=== PATIENT | male | born 1995 | race Caucasian/White ===

== ENCOUNTER 2019-08-23 22:27 | Emergency (ER) | payer BC ==
[2019-08-23 22:36] VITALS: BP 138/90; PULSE 94
--- NOTE | 2019-08-23 23:05 | EDM.PDOCBH ---
ED HPI GENERAL MEDICAL PROBLEM - General Chief Complaint: Drug or Alcohol Abuse Stated Complaint: MEDICAL CHECK Time Seen by Provider: 08/23/19 23:04 - History of Present Illness INITIAL COMMENTS - FREE TEXT/NARRATIVE: 23-year-old male presents emergency room looking for help for his drug addiction. the patient was an inpatient for drug rehabilitation about 5 years ago. But 8 months ago he started using again mostly benzodiazepines Ambien and hydrocodone. This was all brought out the open recently in the patient wants help he believes inpatient help which is what helped him the last time will be needed. Patient started his addiction after becoming addicted to pain pills after wisdom tooth extraction. Patient denies any other medical problems other than a seizure disorder. He takes Keppra for this and is doing well. He is also treated for hypothyroidism - Related Data Allergies Allergy/AdvReac Type Severity Reaction Status Date / Time No Known Allergies Allergy Verified 08/23/19 22:36 Home Meds: Home Meds Levothyroxine [Synthroid] 100 mcg PO DAILY 06/26/19 [History] DULoxetine [Cymbalta] 60 mg PO DAILY 08/23/19 [History] levETIRAcetam [Keppra] 1,000 mg PO BID 08/23/19 [History] Past Medical History - Past Health History Medical/Surgical History: Denies Medical/Surgical History Genitourinary History: Reports: Other (See Below) Neurological History: Reports: Seizure Psychiatric History: Reports: Addiction, Anxiety, Depression Endocrine/Metabolic History: Reports: Hypothyroidism Social & Family History - Tobacco Use Smoking Status *Q: Never Smoker - Caffeine Use Caffeine Use: Reports: Coffee - Recreational Drug Use Recreational Drug Use: Yes Drug Use in Last 12 Months: Yes Recreational Drug Type: Reports: Benzodiazepines, Oxycodone, Vicodin, Other ( see below) Other Recreational Drug Type: ambien Recreational Drug Use Frequency: Daily Recreational Drug Last Use: 08/22/19 ED ROS GENERAL - Review of Systems Review Of Systems: See Below Constitutional: Reports: No Symptoms HEENT: Reports: No Symptoms Respiratory: Reports: No Symptoms Cardiovascular: Reports: No Symptoms Endocrine: Reports: No Symptoms GI/Abdominal: Reports: No Symptoms : Reports: No Symptoms Musculoskeletal: Reports: No Symptoms Skin: Reports: No Symptoms Neurological: Reports: No Symptoms Psychiatric: Denies: Confusion, Homicidal Ideation, Mood Lability, Suicidal Ideation Hematologic/Lymphatic: Denies: No Symptoms Immunologic: Denies: No Symptoms ED EXAM, BEHAVIORAL HEALTH - Physical Exam Exam: See Below Exam Limited By: No Limitations General Appearance: Alert, No Apparent Distress Eye Exam: Bilateral Eye: EOMI, Normal Inspection, PERRL Ears: Normal External Exam, Normal Canal, Hearing Grossly Normal, Normal TMs Nose: Normal Inspection, Normal Mucosa, No Blood Throat/Mouth: Normal Inspection, Normal Lips, Normal Teeth, Normal Gums, Normal Oropharynx, Normal Voice, No Airway Compromise Head: Atraumatic, Normocephalic Neck: Normal Inspection, Supple, Non-Tender, Full Range of Motion. No: Lymphadenopathy (L), Lymphadenopathy (R) Respiratory/Chest: No Respiratory Distress, Lungs Clear, Normal Breath Sounds Cardiovascular: Regular Rate, Rhythm, No Edema, No Murmur GI/Abdominal: Normal Bowel Sounds, Soft, Non-Tender Rectal (Males) Exam: No: Rectal Fissure Back Exam: Normal Inspection. No: CVA Tenderness (R) Extremities: Normal Inspection, Non-Tender, No Pedal Edema Neurological: Alert, Normal Cognition, Other (He is a little tearful at this time) Psychiatric: Alert, Normal Cognition, Tearful. No: Homicidal Thoughts, Suicidal Plan, Suicidal Thoughts Skin Exam: Warm, Dry, Intact EKG INTERPRETATION Rhythm: NSR [place]: Normal P-Wave: Present QRS: Normal ST-T: Normal QT: Normal Comparison: NA - No Prior EKG COURSE, BEHAVIORAL HEALTH COMP - Course Vital Signs: Last Vital Signs Temp 36.5 C 08/23/19 22:34 Pulse 94 08/23/19 22:34 Resp 16 08/23/19 22:34 BP 138/90 08/23/19 22:34 Pulse Ox 99 08/23/19 22:34 Orders, Labs, Meds: Active Orders 24 hr Category Date Time Status EKG Documentation Completion [RC] STAT Care 08/23/19 23:41 Active Laboratory Tests 08/23/19 08/23/19 08/23/19 Range/Units 23:15 23:55 23:55 WBC 9.48 H (4.23-9.07) K/mm3 RBC 5.06 (4.63-6.08) M/mm3 Hgb 14.7 (13.7-17.5) gm/dl Hct 41.9 (40.1-51.0) % MCV 82.8 (79.0-92.2) fl MCH 29.1 (25.7-32.2) pg MCHC 35.1 (32.2-35.5) g/dl RDW Std Deviation 37.9 (35.1-43.9) fL Plt Count 193 (163-337) K/mm3 MPV 11.3 (9.4-12.3) fl Neutrophils % (Manual) 73 H (40-60) % Band Neutrophils % 0 (0-10) % Lymphocytes % (Manual) 21 (20-40) % Atypical Lymphs % 0 % Monocytes % (Manual) 6 (2-10) % Eosinophils % (Manual) 0 L (0.8-7.0) % Basophils % (Manual) 0 L (0.2-1.2) Platelet Estimate Adequate Plt Morphology Comment Normal RBC Morph Comment Normal Sodium 142 (136-145) mEq/L Potassium 3.6 (3.5-5.1) mEq/L Chloride 104 (98-107) mEq/L Carbon Dioxide 27 (21-32) mEq/L Anion Gap 14.6 (5-15) BUN 11 (7-18) mg/dL Creatinine 1.0 (0.7-1.3) mg/dL Est Cr Clr Drug Dosing 136.14 mL/min Estimated GFR (MDRD) > 60 (>60) mL/min BUN/Creatinine Ratio 11.0 L (14-18) Glucose 115 H (74-106) mg/dL Calcium 9.2 (8.5-10.1) mg/dL Total Bilirubin 0.4 (0.2-1.0) mg/dL AST 12 L (15-37) U/L ALT 17 (16-63) U/L Alkaline Phosphatase 80 (46-116) U/L Total Protein 7.3 (6.4-8.2) g/dl Albumin 4.1 (3.4-5.0) g/dl Globulin 3.2 gm/dL Albumin/Globulin Ratio 1.3 (1-2) TSH 3rd Generation 2.827 (0.358-3.74) uIU/mL Urine Color (Yellow) Urine Appearance (Clear) Urine pH (5.0-8.0) Ur Specific [place] (1.005-1.030) Urine Protein (Negative) Urine Glucose (UA) (Negative) Urine Ketones (Negative) Urine Occult Blood (Negative) Urine Nitrite (Negative) Urine Bilirubin (Negative) Urine Urobilinogen (0.2-1.0) Ur Leukocyte Esterase (Negative) Urine RBC (0-5) /hpf Urine WBC (0-5) /hpf Ur Epithelial Cells (0-5) /hpf Urine Bacteria (FEW) /hpf Urine Mucus (FEW) /hpf Urine Opiates Screen Presumptive positive H (CWGGQK=445) Ur Buprenorphine Scrn Negative (CUTOFF=10) Ur Oxycodone Screen Negative (YAO8CG=571) Urine Methadone Screen Negative (YXE0HZ=302) Ur Propoxyphene Screen Negative (FXQVYZ=623) Ur Barbiturates Screen Negative (FWAEFF=404) Ur Tricyclics Screen Negative (HKTZEL=847) Ur Phencyclidine Scrn Negative (CUTOFF=25) Ur Amphetamine Screen Negative (XXVYZL=280) U Methamphetamines Scrn Negative (CKSKPR=841) U Benzodiazepines Scrn Negative (KJCWPX=277) U Cocaine Metab Screen Negative (UBDOSK=277) U Marijuana (THC) Screen Negative (CUTOFF=50) Ethyl Alcohol 0.00 (0.00) gm% 08/23/19 Range/Units 23:57 WBC (4.23-9.07) K/mm3 RBC (4.63-6.08) M/mm3 Hgb (13.7-17.5) gm/dl Hct (40.1-51.0) % MCV (79.0-92.2) fl MCH (25.7-32.2) pg MCHC (32.2-35.5) g/dl RDW Std Deviation (35.1-43.9) fL Plt Count (163-337) K/mm3 MPV (9.4-12.3) fl Neutrophils % (Manual) (40-60) % Band Neutrophils % (0-10) % Lymphocytes % (Manual) (20-40) % Atypical Lymphs % % Monocytes % (Manual) (2-10) % Eosinophils % (Manual) (0.8-7.0) % Basophils % (Manual) (0.2-1.2) Platelet Estimate Plt Morphology Comment RBC Morph Comment Sodium (136-145) mEq/L Potassium (3.5-5.1) mEq/L Chloride (98-107) mEq/L Carbon Dioxide (21-32) mEq/L Anion Gap (5-15) BUN (7-18) mg/dL Creatinine (0.7-1.3) mg/dL Est Cr Clr Drug Dosing mL/min Estimated GFR (MDRD) (>60) mL/min BUN/Creatinine Ratio (14-18) Glucose (74-106) mg/dL Calcium (8.5-10.1) mg/dL Total Bilirubin (0.2-1.0) mg/dL AST (15-37) U/L ALT (16-63) U/L Alkaline Phosphatase (46-116) U/L Total Protein (6.4-8.2) g/dl Albumin (3.4-5.0) g/dl Globulin gm/dL Albumin/Globulin Ratio (1-2) TSH 3rd Generation (0.358-3.74) uIU/mL Urine Color Yellow (Yellow) Urine Appearance Clear (Clear) Urine pH 6.0 (5.0-8.0) Ur Specific [place] 1.010 (1.005-1.030) Urine Protein Negative (Negative) Urine Glucose (UA) Negative (Negative) Urine Ketones Negative (Negative) Urine Occult Blood Negative (Negative) Urine Nitrite Negative (Negative) Urine Bilirubin Negative (Negative) Urine Urobilinogen 0.2 (0.2-1.0) Ur Leukocyte Esterase Negative (Negative) Urine RBC Not seen (0-5) /hpf Urine WBC Not seen (0-5) /hpf Ur Epithelial Cells Not seen (0-5) /hpf Urine Bacteria Rare (FEW) /hpf Urine Mucus Not seen (FEW) /hpf Urine Opiates Screen (RYDPME=526) Ur Buprenorphine Scrn (CUTOFF=10) Ur Oxycodone Screen (WGP5BI=884) Urine Methadone Screen (YPG2OT=574) Ur Propoxyphene Screen (SPMLTC=555) Ur Barbiturates Screen (AOTHWP=340) Ur Tricyclics Screen (ZFZDOV=792) Ur Phencyclidine Scrn (CUTOFF=25) Ur Amphetamine Screen (BYTWEM=403) U Methamphetamines Scrn (GNUTBB=721) U Benzodiazepines Scrn (URKPAB=590) U Cocaine Metab Screen (RETUXR=618) U Marijuana (THC) Screen (CUTOFF=50) Ethyl Alcohol (0.00) gm% Medical Clearance: 08/24/19 00:59 EKG laboratory findings are nondiagnostic drug screen positive only for opioids EKG normal. The patient is cleared to go to inpatient drug rehabilitation 08/24/19 01:03 The patient's [id number] is quite comfortable taking the patient home tonight and will keep an eye on him he is alert oriented his vital signs are stable and he is not overtly intoxicated at this point. Departure - Departure Time of Disposition: 01:00 Disposition: Home, Self-Care 01 Clinical Impression: Adult general medical exam - Discharge Information Referrals: Angie Conrad NP [Primary Care Provider] - Additional Instructions: Return to the emergency room with any questions problems worsening symptoms. Call [facility] in [place] early in the morning to arrange placement. If you have any difficulties with this call [facility] services. - My Orders Last 24 Hours: My Active Orders 08/23/19 23:41 EKG Documentation Completion [RC] STAT - Assessment/Plan Last 24 Hours: My Active Orders 08/23/19 23:41 EKG Documentation Completion [RC] STAT
== END 2019-08-24 01:10 | disposition home or self-care (01) ==
LOC: JD.ED 22:27
DX: Z00.00 Encounter for general adult medical examination without abnormal findings (principal); E03.9 Hypothyroidism, unspecified; G40.909 Epilepsy, unspecified, not intractable, without status epilepticus; F32.9 Major depressive disorder, single episode, unspecified; F41.9 Anxiety disorder, unspecified; Z79.890 Hormone replacement therapy; Z79.899 Other long term (current) drug therapy
CPT/HCPCS: 36415; 80053; 80306; 81001; 84443; 85007; 85027; 93005; 93010; 99283; 99283-25; G0480

== ENCOUNTER 2022-09-23 10:46 | Emergency (ER) | payer BC, OTHER ==
[2022-09-23 11:06] VITALS: BP 148/89; PULSE 86
[2022-09-23] MEDS ORDERED: Ketorolac 60 MG/2 ML SDV IM ONE (11:58)
[2022-09-23] MEDS ORDERED: traMADol 50 MG Tab PO ONE (12:46)
[2022-09-23] MEDS ORDERED: Acetaminophen/HYDROcodone 325-5 MG Tab PO ONE (15:07)
== END 2022-09-23 15:45 | disposition home or self-care (01) ==
LOC: JD.ED 10:46
DX: S92.102A Unspecified fracture of left talus, initial encounter for closed fracture (principal); Z79.899 Other long term (current) drug therapy
CPT/HCPCS: 73610; 73700; 96372; 99284; A9270; J1885; 99283

== ENCOUNTER 2022-09-24 22:22 | Emergency (ER) | payer OTHER ==
[2022-09-24 22:46] VITALS: BP 126/85; PULSE 84
[2022-09-24] MEDS ORDERED: Ondansetron 4 MG/2 ML SDV IVPUSH ONE (23:15)
[2022-09-24] MEDS ORDERED: Sodium Chloride 0.9% 1,000 ML IV SCH (23:15)
[2022-09-24] MEDS ORDERED: HYDROmorphone 1 MG/ML Syringe IVPUSH ONE (23:15)
[2022-09-25] MEDS ORDERED: HYDROmorphone 1 MG/ML Syringe IVPUSH ONE (00:58)
== END 2022-09-25 02:56 ==
LOC: JD.ED 22:22
DX: S92.902A Unspecified fracture of left foot, initial encounter for closed fracture (principal); E66.9 Obesity, unspecified; Z68.32 Body mass index [BMI] 32.0-32.9, adult; Z79.899 Other long term (current) drug therapy; Z87.891 Personal history of nicotine dependence; Z86.16 Personal history of COVID-19; W11.XXXA Fall on and from ladder, initial encounter; Y92.69 Other specified industrial and construction area as the place of occurrence of the external cause
CPT/HCPCS: 96361; 96374; 96375; 96376; 99284; J1170; J2405; J7030; 99283

== ENCOUNTER 2023-08-22 12:58 | Emergency (ER) | payer BC ==
[2023-08-22 14:24] LABS: BARBITURATE SCREEN,URINE NEGATIVE (CUTOFF=200); BENZODIAZEPINES SCREEN,URINE PRESUMPTIVE POSITIVE (CUTOFF=150); BUPRENORPHINE SCREEN,URINE NEGATIVE (CUTOFF=10); METHADONE SCREEN, URINE NEGATIVE (CUT0FF=200); METHAMPHETAMINES SCREEN, URINE NEGATIVE (CUTOFF=500); OXYCODONE SCREEN,URINE PRESUMPTIVE POSITIVE (CUT0FF=100); PROPOXYPHENE SCREEN,URINE NEGATIVE (CUTOFF=300); THC SCREEN,URINE 20 NG/ML NEGATIVE (CUTOFF=50)
[2023-08-22 14:35] LABS: AMPHETAMINES SCREEN, URINE NEGATIVE (CUTOFF=500)
[2023-08-22 14:41] LABS: BASOPHILS ABSOLUTE AUTO 0.1 K/mm3 (0.0-0.2); BASOPHILS PERCENT AUTO 1.1 % (0.0-1.0); EOSINOPHILS PERCENT AUTO 0.3 % (0.0-6.0); HEMATOCRIT 42.3 % (42.0-52.0); HEMOGLOBIN 14.4 gm/dl (14.0-18.0); IMMATURE GRAN ABSOLUTE AUTO 0.03 K/mm3 (0.00-0.05); IMMATURE GRAN PERCENT AUTO 0.4 % (0.0-0.4); LYMPHOCYTES ABSOLUTE AUTO 1.7 K/mm3 (1.0-4.8); LYMPHOCYTES PERCENT AUTO 23.1 % (24.0-44.0); MEAN CORPUSCULAR HEMOGLOBIN 28.7 pg (28.0-32.0); MEAN CORPUSCULAR VOLUME 84.3 fl (83.0-99.0); MEAN PLATELET VOLUME 10.2 fl (9.4-12.4); MONOCYTES ABSOLUTE AUTO 0.4 K/mm3 (0.0-0.8); MONOCYTES PERCENT AUTO 4.8 % (0.0-8.0); NEUTROPHILS ABSOLUTE AUTO 5.2 K/mm3 (1.8-7.7); NEUTROPHILS PERCENT AUTO 70.3 % (41.0-71.0); PLATELET COUNT,PLT 253 K/mm3 (150-400); RED BLOOD CELL COUNT 5.02 M/mm3 (4.52-5.90); WHITE BLOOD CELL COUNT,WBC 7.32 K/mm3 (3.9-11.3)
[2023-08-22 15:21] LABS: A/G RATIO 1.1 (1-2); ANION GAP 14.7 (5-15); BILIRUBIN TOTAL 0.6 mg/dL (0.2-1.0); CALCIUM 9.5 mg/dL (8.5-10.1); CREATININE 0.7 mg/dL (0.7-1.3); EST CRCL DRUG DOSING (CG) 177.56 mL/min; POTASSIUM,K 3.7 mEq/L (3.5-5.1); PROTEIN TOTAL,TP 7.7 g/dl (6.4-8.2); TSH 0.954 uIU/mL (0.358-3.74)
[2023-08-22 18:23] VITALS: BP 124/82; PULSE 79
== END 2023-08-22 17:29 | disposition other institution (70) ==
LOC: JD.ED 12:58
DX: F11.20 Opioid dependence, uncomplicated (principal); E03.9 Hypothyroidism, unspecified; E66.9 Obesity, unspecified; Z86.16 Personal history of COVID-19; Z79.899 Other long term (current) drug therapy; Z68.25 Body mass index [BMI] 25.0-25.9, adult
CPT/HCPCS: 36415; 80053; 80143; 80179; 80306; 80307; 84443; 85025; 93005; 93010; 99284

== ENCOUNTER 2024-03-14 04:04 | Emergency (ER) | payer BC ==
[2024-03-14] MEDS: Sodium Chloride 0.9% 10 ML Syringe FLUSH PRN (04:44)
[2024-03-14 04:47] LABS: APPEARANCE,URINE CLEAR (Clear); BASOPHILS ABSOLUTE AUTO 0.1 K/mm3 (0.0-0.2); BASOPHILS PERCENT AUTO 0.6 % (0.0-1.0); BILIRUBIN,URINE 1+ (Negative); COLOR,URINE YELLOW (Yellow); EOSINOPHILS PERCENT AUTO 0.4 % (0.0-6.0); GLUCOSE,URINE NEGATIVE (Negative); HEMATOCRIT 43.1 % (42.0-52.0); HEMOGLOBIN 14.7 gm/dl (14.0-18.0); IMMATURE GRAN ABSOLUTE AUTO 0.01 K/mm3 (0.00-0.05); IMMATURE GRAN PERCENT AUTO 0.1 % (0.0-0.4); KETONES,URINE NEGATIVE (Negative); LEUKOCYTE ESTERASE,URINE NEGATIVE (Negative); LYMPHOCYTES ABSOLUTE AUTO 2.2 K/mm3 (1.0-4.8); LYMPHOCYTES PERCENT AUTO 28.6 % (24.0-44.0); MEAN CORPUSCULAR HEMOGLOBIN 27.8 pg (28.0-32.0); MEAN CORPUSCULAR HGB CONC 34.1 g/dl (32.0-36.0); MEAN CORPUSCULAR VOLUME 81.6 fl (83.0-99.0); MEAN PLATELET VOLUME 10.4 fl (9.4-12.4); MONOCYTES ABSOLUTE AUTO 0.7 K/mm3 (0.0-0.8); MONOCYTES PERCENT AUTO 8.4 % (0.0-8.0); NEUTROPHILS ABSOLUTE AUTO 4.8 K/mm3 (1.8-7.7); NEUTROPHILS PERCENT AUTO 61.9 % (41.0-71.0); NITRITE,URINE NEGATIVE (Negative); OCCULT BLOOD,URINE NEGATIVE (Negative); PLATELET COUNT,PLT 180 K/mm3 (150-400); PROTEIN,URINE 1+ (Negative); RED BLOOD CELL COUNT 5.28 M/mm3 (4.52-5.90); WHITE BLOOD CELL COUNT,WBC 7.77 K/mm3 (3.9-11.3)
[2024-03-14 05:04] LABS: BACTERIA,URINE FEW /hpf (FEW); EPITHELIAL CELLS,URINE 0-5 /hpf (0-5); MUCUS,URINE MANY /hpf (FEW); RBC,URINE 0-5 /hpf (0-5); WBC,URINE 0-5 /hpf (0-5)
[2024-03-14 05:16] LABS: A/G RATIO 1.2 (1-2); BILIRUBIN TOTAL 0.6 mg/dL (0.2-1.0); BUN/CREATININE RATIO 13.6 (14-18); CALCIUM 8.6 mg/dL (8.5-10.1); CREATININE 1.1 mg/dL (0.7-1.3); EST CRCL DRUG DOSING (CG) 115.2 mL/min; MAGNESIUM 1.7 mg/dL (1.8-2.4); PROTEIN TOTAL,TP 7.4 g/dl (6.4-8.2); TSH 1.077 uIU/mL (0.358-3.74)
[2024-03-14] MEDS: Lidocaine 1% 10 ML MDV INJECT ONE (05:26)
[2024-03-14] MEDS: Triamcinolone Acetonide 40 MG/ML 1 ML SDV INJECT ONE (05:26)
[2024-03-14 06:08] VITALS: BP 133/77; PULSE 95
== END 2024-03-14 06:01 | disposition home or self-care (01) ==
LOC: JD.ED 04:04
DX: M54.2 Cervicalgia (principal); R51.9 Headache, unspecified; E83.42 Hypomagnesemia; E03.9 Hypothyroidism, unspecified; F17.210 Nicotine dependence, cigarettes, uncomplicated; Z79.899 Other long term (current) drug therapy; Z86.16 Personal history of COVID-19
CPT/HCPCS: 20552; 36415; 70450; 80053; 81001; 83735; 84443; 85025; 96372; 99284; J3301; J3490; 99283